=== PATIENT | female | born 1955 | race Caucasian/White ===

== ENCOUNTER → 2021-07-22 07:25 | Outpatient (CLI) | payer MEDICARE, SELFPAY ==
[2021-07-22 08:36] LABS: Add Manual Diff / Slide Review NO; Basophils Absolute Auto 0 /uL (0-100); Basophils Percent Auto 1.7 % (0-2); Eosinophils Absolute Auto 100 /uL (0-450); Eosinophils Percent Auto 5.6 % (2-4); Hematocrit 30.5 % (36-46); Hemoglobin 10.6 g/dL (12.0-16.0); Lymphocytes Absolute Auto 800 /uL (1100-4500); Lymphocytes Percent Auto 33.5 % (25-40); Mean Corpuscular HGB Conc 34.8 % (30-36); Mean Corpuscular Hemoglobin 31.3 PG (26-34); Mean Corpuscular Volume 89.9 fL (80-100); Monocytes Absolute Auto 300 /uL (0-900); Monocytes Percent Auto 11.6 % (3-14); Neutrophils Absolute Auto 1200 /uL (1500-7000); Neutrophils Percent Auto 47.6 % (50-75); Platelet Count 207 X10^3/uL (150-400); Red Blood Cell Count 3.39 X10^6/uL (4.0-5.2); Red Cell Distribution Width 12.1 % (11.6-14.8); White Blood Cell Count 2.5 X10^3/uL (4.5-11.0)
[2021-07-22 09:05] LABS: Erythrocyte Sedimentation Rate 17 MM/HR (0-20)
[2021-07-22 09:16] LABS: Alanine Aminotransferase 16 IU/L (<35); Albumin 3.8 g/dL (3.5-5.0); Albumin Globulin Ratio 1.7 (1.0-2.8); Alkaline Phosphatase 58 U/L (38-126); Aspartate Aminotransferase 27 IU/L (14-36); BUN Creatinine Ratio 19.7 (6-22); Bilirubin Total 0.2 mg/dL (0.2-1.3); Blood Urea Nitrogen 13 mg/dL (7-17); C-Reactive Protein Quant < 0.5 mg/dL (<1.0); Calcium 8.7 mg/dL (8.4-10.2); Carbon Dioxide 28 mmol/L (22-32); Chloride 101 mmol/L (98-107); Cholesterol 177 mg/dL (140-199); Estimated Glomerular Filt Rate > 60 mL/min (>60); Globulin 2.3 g/dL (1.7-4.1); Glucose 80 mg/dL (80-110); HDL Cholesterol 43 mg/dL (40-60); HEMOLYSIS < 15 (0-50); LDL Cholesterol Calculated 115 mg/dL (<100); Potassium 4.1 mmol/L (3.4-5.1); Sodium 135 mmol/L (137-145); Total Protein 6.1 g/dL (6.3-8.2); Triglycerides 94 mg/dL (35-150)
[2021-07-22 09:26] LABS: Vitamin D 25 Hydroxy (D3) 47.1 ng/mL (30.0-100.0)
[2021-07-22 10:02] LABS: Vitamin B12 Reflex MMA if <400 > 1000 pg/mL (239-931)
[2021-07-22 16:37] LABS: Hep C Virus Ab w/Reflex Quant NEGATIVE s/c (NEGATIVE)
[2021-07-24 15:44] LABS: ANA Screen, IFA Negative (.)
[2021-07-28 12:01] LABS: Antimyeloperoxidase AB <9.0 U/mL (0.0-9.0); Antiproteinase 3 AB <3.5 U/mL (0.0-3.5); Atypical P-ANCA Titer <1:20 titer (Neg:<1:20); C-ANCA Titer <1:20 titer (Neg:<1:20); P-ANCA Titer <1:20 titer (Neg:<1:20)
== END ==
PROVIDERS: PCP Family Medicine; Referring Provider Family Medicine; Visit Provider Family Medicine
DX: E55.9 Vitamin D deficiency, unspecified (principal); L40.9 Psoriasis, unspecified; Z11.59 Encounter for screening for other viral diseases; E53.8 Deficiency of other specified B group vitamins; F32.9 Major depressive disorder, single episode, unspecified; L30.9 Dermatitis, unspecified; L71.9 Rosacea, unspecified
CPT/HCPCS: 36415; 80053; 80061; 82306; 82607; 83520; 85025; 85651; 86038; 86140; 86256; 86803

== ENCOUNTER → 2021-07-27 12:28 | Outpatient (CLI) | payer MEDICARE, SELFPAY ==
--- NOTE | 2021-07-27 12:31 | DI.MG.S_ITS ---
BILATERAL DIGITAL SCREENING MAMMOGRAM 3D/2D WITH CAD: 07/27/2021 CLINICAL: Routine screening. Family history of breast cancer. Comparison is made to exams dated: 06/24/2020 mammogram, 06/27/2019 mammogram, and 06/06/2018 mammogram - outside location. The tissue of both breasts is extremely dense, which lowers the sensitivity of mammography. Current study was also evaluated with a Computer Aided Detection (CAD) system. No significant masses, calcifications, or other findings are seen in either breast. There has been no significant interval change. IMPRESSION: NEGATIVE There is no mammographic evidence of malignancy. A 1 year screening mammogram is recommended. This exam was interpreted at Station ID: [id number]. NOTE: For mammograms, a report in lay terms will be sent to the patient. Approximately 15% of breast malignancies will not be visualized mammographically. In the management of a palpable breast mass, a negative mammogram must not discourage biopsy of a clinically suspicious lesion. Electronically Signed By: Zac jaime/nella:07/27/2021 13:09:54 letter sent: Normal Exam ACR BI-RADS Category 1: Negative [id number]
== END ==
PROVIDERS: PCP Family Medicine; Referring Provider Family Medicine; Visit Provider Family Medicine
DX: Z12.31 Encounter for screening mammogram for malignant neoplasm of breast (principal); Z80.3 Family history of malignant neoplasm of breast; Z13.820 Encounter for screening for osteoporosis; M81.0 Age-related osteoporosis without current pathological fracture; Z78.0 Asymptomatic menopausal state; F32.9 Major depressive disorder, single episode, unspecified
CPT/HCPCS: 77063; 77067; 77080

== ENCOUNTER → 2022-06-30 11:17 | Outpatient (CLI) | payer MEDICARE, SELFPAY ==
[2022-06-30 12:48] LABS: Add Manual Diff / Slide Review NO; Basophils Absolute Auto 0 /uL (0-100); Eosinophils Absolute Auto 100 /uL (0-450); Eosinophils Percent Auto 3.4 % (2-4); Hematocrit 36.5 % (36-46); Hemoglobin 12.3 g/dL (12.0-16.0); Lymphocytes Absolute Auto 1200 /uL (1100-4500); Lymphocytes Percent Auto 28.1 % (25-40); Mean Corpuscular HGB Conc 33.7 % (30-36); Mean Corpuscular Hemoglobin 30.5 PG (26-34); Mean Corpuscular Volume 90.6 fL (80-100); Monocytes Absolute Auto 300 /uL (0-900); Monocytes Percent Auto 7.7 % (3-14); Neutrophils Absolute Auto 2500 /uL (1500-7000); Neutrophils Percent Auto 59.8 % (50-75); Platelet Count 200 X10^3/uL (150-400); Red Blood Cell Count 4.03 X10^6/uL (4.0-5.2); Red Cell Distribution Width 13.2 % (11.6-14.8); White Blood Cell Count 4.1 X10^3/uL (4.5-11.0)
[2022-06-30 13:13] LABS: Alanine Aminotransferase 21 IU/L (<35); Albumin 4.2 g/dL (3.5-5.0); Albumin Globulin Ratio 1.7 (1.0-2.8); Alkaline Phosphatase 69 U/L (38-126); Aspartate Aminotransferase 29 IU/L (14-36); Bilirubin Total 0.3 mg/dL (0.2-1.3); Blood Urea Nitrogen 13 mg/dL (7-17); Calcium 9.3 mg/dL (8.4-10.2); Carbon Dioxide 30 mmol/L (22-32); Chloride 101 mmol/L (98-107); Cholesterol 194 mg/dL (140-199); Estimated Glomerular Filt Rate > 60 mL/min (>60); Globulin 2.5 g/dL (1.7-4.1); Glucose 77 mg/dL (80-110); HDL Cholesterol 55 mg/dL (40-60); HEMOLYSIS < 15 (0-50); LDL Cholesterol Calculated 95 mg/dL (<100); Magnesium 2.1 mg/dL (1.6-2.3); Potassium 4.2 mmol/L (3.4-5.1); Sodium 136 mmol/L (137-145); Total Protein 6.7 g/dL (6.3-8.2); Triglycerides 218 mg/dL (35-150)
[2022-06-30 13:15] LABS: HEMOLYSIS < 15 (0-50); Iron 63 ug/dL (37-170)
[2022-06-30 13:27] LABS: Percent Iron Saturation 15 % (15-50); Total Iron Binding Capacity 415 ug/dL (265-497); Transferrin 301 mg/dL (206-381)
[2022-06-30 13:45] LABS: TSH w/ Reflex to FT4 2.01 uIU/mL (0.47-4.68)
[2022-06-30 13:50] LABS: Ferritin 9 ng/mL (11-264)
[2022-07-01 12:30] LABS: x Labcorp Estim. Avg Glu (eAG) 114 mg/dL (.); x Labcorp Hemoglobin A1c 5.6 % (4.8-5.6)
[2022-07-10 15:36] LABS: Interpretation Negative (.)
== END ==
PROVIDERS: PCP Family Medicine; Referring Provider Internal Medicine Cardiovascular Disease; Visit Provider Internal Medicine Cardiovascular Disease
DX: R73.9 Hyperglycemia, unspecified (principal); I49.1 Atrial premature depolarization; E78.5 Hyperlipidemia, unspecified; R00.2 Palpitations; R06.09 Other forms of dyspnea; D64.9 Anemia, unspecified; D72.819 Decreased white blood cell count, unspecified; L30.9 Dermatitis, unspecified; L71.9 Rosacea, unspecified
CPT/HCPCS: 36415; 80053; 80061; 81206; 81207; 82728; 83036; 83540; 83550; 83735; 84443; 85025

== ENCOUNTER → 2023-04-05 14:03 | Outpatient (CLI) | payer MEDICARE, SELFPAY ==
--- NOTE | 2023-04-05 14:04 | DI.MG.S_ITS ---
BILATERAL DIGITAL SCREENING MAMMOGRAM 3D/2D WITH CAD: 04/05/2023 CLINICAL: Routine screening. Family history of breast cancer. Comparison is made to exams dated: 07/27/2021 mammogram - [facility], 06/24/2020 mammogram, and 06/27/2019 mammogram - outside location. Both breasts are extremely dense, which lowers the sensitivity of mammography (category d />75% glandular tissue). Current study was also evaluated with a Computer Aided Detection (CAD) system. There are benign calcifications in both breasts. There also are benign post operative findings in the left breast. No significant masses, calcifications, or other findings are seen in either breast. There has been no significant interval change. IMPRESSION: BENIGN There is no mammographic evidence of malignancy. A 1 year screening mammogram is recommended. Based on the Tyrer Cuzick model (a risk assessment model) the patient's lifetime risk is 13.7% and her 10 year risk is 8.2%. According to the ACR, ACS, and NCCN guidelines, an annual breast MRI exam along with mammogram is recommended if the patient's lifetime risk is 20% or greater. This exam was interpreted at Station ID: [id number]. NOTE: For mammograms, a report in lay terms will be sent to the patient. Approximately 15% of breast malignancies will not be visualized mammographically. In the management of a palpable breast mass, a negative mammogram must not discourage biopsy of a clinically suspicious lesion. Electronically Signed By: Cristian lopez/nella:04/05/2023 16:48:20 letter sent: Normal Exam ACR BI-RADS Category 2: Benign Finding(s) 3342F
--- NOTE | 2023-04-05 14:04 | DI.RAD.S_ITS ---
Bone Density Report Name: TALON SEPULVEDA Age: 67 Sex: Female Ethnicity: White Date of : 1955 Indication: postmenopausal osteoporosis; Referring Provider: ALE TYLER Study: Bone densitometry was performed. Exam Date: April 05, 2023 Accession number: [id number] Bone Density: Region BMD T-score Z-score Classification AP Spine(L1-L4) 0.760 -2.6 -0.6 Osteoporosis Femoral Neck (Left) 0.731 -1.1 0.7 Osteopenia Total Hip (Left) 0.800 -1.2 0.3 Osteopenia Femoral Neck (Right) 0.640 -1.9 -0.1 Osteopenia Total Hip (Right) 0.746 -1.6 -0.1 Osteopenia Total Hip Mean 0.773 -1.4 0.1 Osteopenia World Health Organization criteria for BMD impression classify patients as: Normal (T-score at or above -1.0), Osteopenia (T-score between -1.0 and -2.5), or Osteoporosis (T-score at or below -2.5). Previous Exams: -- Region Exam Age BMD T-score BMD Change BMD Change Date g/cm2 vs Baseline vs Previous -- AP Spine (L1-L4) 04/05/2023 67 0.760 -2.6 -0.007 (-0.9%) -0.007 (-0.9%) 07/27/2021 65 0.766 -2.6 Total Hip(Left) 04/05/2023 67 0.800 -1.2 0.027 (3.5%) 0.027 (3.5%) 07/27/2021 65 0.773 -1.4 Total Hip(Right) 04/05/2023 67 0.746 -1.6 -0.001 (-0.2%) -0.001 (-0.2%) 07/27/2021 65 0.748 -1.6 -- *Denotes significance at 95% confidence level, LSC for AP Spine = 0.022 g/cm2, LSC for Total Hip = 0.027 g/cm2 Impression: The patient has osteoporosis, based on the Total Spine T-score. No significant bone loss was observed. Discussion: INCREASED RISK OF FRACTURE. BONE DENSITY IS UNDESIRABLY LOW AT ONE OR MORE SKELETAL SITES, CONSISTENT WITH POSTMENOPAUSAL OSTEOPOROSIS. This patient's lowest T-score meets the World Health Organization's (WHO) criteria for osteoporosis at one or more sites (T-score -2.5 or below). In untreated patients, the risk of osteoporotic fracture increases approximately two-fold for each 1.0 SD decrease in T-score. Low bone density is not the only risk factor for fracture; also consider factors such as patient's age, frailty or poor health, risk of falling, risk of injury, previous osteoporotic fracture, family history of osteoporosis, cigarette smoking, low body weight, etc. Not everyone with low bone mineral density has osteoporosis; osteomalacia and other metabolic bone disorders should also be considered. Patients who have osteoporosis should be evaluated for specific diseases and conditions (secondary causes) that may cause or contribute to bone loss. The [place] [employer] Endocrinologists (AACE) and National Osteoporosis Foundation (NOF) recommend pharmacologic intervention for all postmenopausal women whose T-score is in this range. The patient should follow a healthful lifestyle (good nutrition with adequate calcium and vitamin D, and appropriate weight-bearing exercise). Follow-Up: Consider a repeat BMD and Vertebral Fracture Assessment (VFA) exam in 2 years or sooner if medically necessary, to reassess this patient's status. Reported by: DEJAN CURRY MD on 04/05/2023 2:59:00 PM.
--- NOTE | 2023-04-05 14:46 | DI.DEXA.S_ITS ---
Bone Density Report Name: TALON SEPULVEDA Age: 67 Sex: Female Ethnicity: White Date of : 1955 Indication: postmenopausal osteoporosis; Referring Provider: ALE TYLER Study: Bone densitometry was performed. Exam Date: April 05, 2023 Accession number: [id number] Bone Density: Region BMD T-score Z-score Classification AP Spine(L1-L4) 0.760 -2.6 -0.6 Osteoporosis Femoral Neck (Left) 0.731 -1.1 0.7 Osteopenia Total Hip (Left) 0.800 -1.2 0.3 Osteopenia Femoral Neck (Right) 0.640 -1.9 -0.1 Osteopenia Total Hip (Right) 0.746 -1.6 -0.1 Osteopenia Total Hip Mean 0.773 -1.4 0.1 Osteopenia World Health Organization criteria for BMD impression classify patients as: Normal (T-score at or above -1.0), Osteopenia (T-score between -1.0 and -2.5), or Osteoporosis (T-score at or below -2.5). Previous Exams: -- Region Exam Age BMD T-score BMD Change BMD Change Date g/cm2 vs Baseline vs Previous -- AP Spine (L1-L4) 04/05/2023 67 0.760 -2.6 -0.007 (-0.9%) -0.007 (-0.9%) 07/27/2021 65 0.766 -2.6 Total Hip(Left) 04/05/2023 67 0.800 -1.2 0.027 (3.5%) 0.027 (3.5%) 07/27/2021 65 0.773 -1.4 Total Hip(Right) 04/05/2023 67 0.746 -1.6 -0.001 (-0.2%) -0.001 (-0.2%) 07/27/2021 65 0.748 -1.6 -- *Denotes significance at 95% confidence level, LSC for AP Spine = 0.022 g/cm2, LSC for Total Hip = 0.027 g/cm2 Impression: The patient has osteoporosis, based on the Total Spine T-score. No significant bone loss was observed. Discussion: INCREASED RISK OF FRACTURE. BONE DENSITY IS UNDESIRABLY LOW AT ONE OR MORE SKELETAL SITES, CONSISTENT WITH POSTMENOPAUSAL OSTEOPOROSIS. This patient's lowest T-score meets the World Health Organization's (WHO) criteria for osteoporosis at one or more sites (T-score -2.5 or below). In untreated patients, the risk of osteoporotic fracture increases approximately two-fold for each 1.0 SD decrease in T-score. Low bone density is not the only risk factor for fracture; also consider factors such as patient's age, frailty or poor health, risk of falling, risk of injury, previous osteoporotic fracture, family history of osteoporosis, cigarette smoking, low body weight, etc. Not everyone with low bone mineral density has osteoporosis; osteomalacia and other metabolic bone disorders should also be considered. Patients who have osteoporosis should be evaluated for specific diseases and conditions (secondary causes) that may cause or contribute to bone loss. The [place] [employer] Endocrinologists (AACE) and National Osteoporosis Foundation (NOF) recommend pharmacologic intervention for all postmenopausal women whose T-score is in this range. The patient should follow a healthful lifestyle (good nutrition with adequate calcium and vitamin D, and appropriate weight-bearing exercise). Follow-Up: Consider a repeat BMD and Vertebral Fracture Assessment (VFA) exam in 2 years or sooner if medically necessary, to reassess this patient's status. Reported by: NANO MAYERS M.D. on 04/05/2023 8:29:00 AM.
== END ==
PROVIDERS: PCP Family Medicine; Referring Provider Family Medicine; Visit Provider Family Medicine
DX: M81.0 Age-related osteoporosis without current pathological fracture (principal); Z12.31 Encounter for screening mammogram for malignant neoplasm of breast; Z80.3 Family history of malignant neoplasm of breast; R92.343 Mammographic extreme density, bilateral breasts
CPT/HCPCS: 77063; 77067; 77080

== ENCOUNTER → 2023-07-28 10:20 | Outpatient (CLI) | payer MEDICARE, SELFPAY ==
[2023-07-28 10:59] LABS: Add Manual Diff / Slide Review NO; Basophils Absolute Auto 100 /uL (0-100); Basophils Percent Auto 1.4 % (0-2); Eosinophils Absolute Auto 200 /uL (0-450); Lymphocytes Absolute Auto 1100 /uL (1100-4500); Lymphocytes Percent Auto 29.3 % (25-40); Mean Corpuscular HGB Conc 33.4 % (30-36); Mean Corpuscular Hemoglobin 31.4 PG (26-34); Mean Corpuscular Volume 94.2 fL (80-100); Monocytes Absolute Auto 300 /uL (0-900); Monocytes Percent Auto 8.5 % (3-14); Neutrophils Absolute Auto 2200 /uL (1500-7000); Neutrophils Percent Auto 55.8 % (50-75); Platelet Count 183 X10^3/uL (150-400); Red Blood Cell Count 4.14 X10^6/uL (4.0-5.2); Red Cell Distribution Width 12.7 % (11.6-14.8); White Blood Cell Count 3.9 X10^3/uL (4.5-11.0)
[2023-07-28 11:14] LABS: HEMOLYSIS < 15 (0-50); Iron 89 ug/dL (37-170)
[2023-07-28 11:17] LABS: Alanine Aminotransferase 25 IU/L (<35); Albumin 4.1 g/dL (3.5-5.0); Alkaline Phosphatase 77 U/L (38-126); Aspartate Aminotransferase 34 IU/L (14-36); BUN Creatinine Ratio 19.4 (6-22); Bilirubin Total 0.5 mg/dL (0.2-1.3); Blood Urea Nitrogen 12 mg/dL (7-17); Calcium 8.9 mg/dL (8.4-10.2); Carbon Dioxide 28 mmol/L (22-32); Chloride 105 mmol/L (98-107); Cholesterol 218 mg/dL (140-199); Estimated Glomerular Filt Rate > 60 mL/min (>60); Globulin 2.1 g/dL (1.7-4.1); Glucose 84 mg/dL (80-110); HDL Cholesterol 61 mg/dL (40-60); HEMOLYSIS < 15 (0-50); LDL Cholesterol Calculated 134 mg/dL (<100); Potassium 4.2 mmol/L (3.4-5.1); Sodium 137 mmol/L (137-145); Total Protein 6.2 g/dL (6.3-8.2); Triglycerides 113 mg/dL (35-150)
[2023-07-28 11:25] LABS: Percent Iron Saturation 26 % (15-50); Total Iron Binding Capacity 339 ug/dL (265-497); Transferrin 260 mg/dL (206-381)
[2023-07-28 11:31] LABS: Vitamin D 25 Hydroxy (D3) 52.4 ng/mL (30.0-100.0)
[2023-07-28 11:45] LABS: TSH w/ Reflex to FT4 1.14 uIU/mL (0.47-4.68)
[2023-07-28 11:50] LABS: Ferritin 17 ng/mL (11-264)
[2023-08-01 07:21] LABS: Apolipoprotein B 113 mg/dL (<90)
== END ==
LOC: LAB 10:21
PROVIDERS: PCP Family Medicine; Referring Provider Family Medicine; Visit Provider Family Medicine
DX: L71.9 Rosacea, unspecified (principal); L40.9 Psoriasis, unspecified; F32.9 Major depressive disorder, single episode, unspecified; E78.5 Hyperlipidemia, unspecified; L30.9 Dermatitis, unspecified; M85.80 Other specified disorders of bone density and structure, unspecified site; D72.819 Decreased white blood cell count, unspecified; E55.9 Vitamin D deficiency, unspecified
CPT/HCPCS: 36415; 80053; 80061; 82172; 82306; 82728; 83540; 83550; 84443; 85025

== ENCOUNTER → 2024-03-23 07:33 | Outpatient (CLI) | payer MEDICARE, SELFPAY ==
--- NOTE | 2024-03-23 07:37 | DI.MRI.S_ITS ---
PROCEDURE: MR AB PANCREATIC/MRCP PROTOCOL INDICATIONS: pancreatic cyst TECHNIQUE: Coronal HASTE through the abdomen, axial 2-D FLASH in- and [id number], and breath-hold T2 FSE with fat saturation through the biliary system and pancreas. Oblique coronal and axial thin-slice HASTE, radial thick-slab HASTE centered on the extrahepatic bile ducts. Axial T1 vibe pre and postcontrast. Postcontrast T1 coronal images. Restricted diffusion sequences. 20 cc ProHance IV contrast. COMPARISON: [facility], MR, MR ABDOMEN PANCREAS PROTOCOL, 02/27/2020, 9:27. [facility], MR, MR ABDOMEN PANCREAS PROTOCOL, 04/14/2022, 9:29. FINDINGS: Image quality: Diagnostic. Gallbladder: No gallstones or wall thickening. Biliary ducts: No biliary dilation. Pancreas: No ductal dilation. Small cyst in the head of the pancreas measuring 0.8 cm, (3/10), unchanged, and remotely 0.9 cm in 2020. No high risk stigmata. No enhancement or restricted diffusion. OTHER: Lung bases: Unremarkable. Liver: No solid mass. A few cysts. Spleen: Size is within normal limits. Adrenal Glands: No adrenal nodules. Kidneys and Ureters: No hydronephrosis. No solid mass. No complex renal cystic lesion which requires follow up. Small cyst at the superior pole the right kidney measuring 2.6 cm. Stomach and Bowel: Prominent stool in the colon. No dilated loops of small bowel. The stomach is not distended. Peritoneum: No ascites. Ventral Wall: No hernia. Abdominal Nodes: No retroperitoneal or mesenteric adenopathy by size criteria. Vessels: Aorta and inferior vena cava are normal in size. Bones: No aggressive osseous abnormality. IMPRESSION: 1. Small cyst in the head of the pancreas measuring 0.8 cm, unchanged. This could represent a small side branch IPMN. No high risk stigmata. Low suspicion. -Recommend follow-up MRI pancreas or CT in 2 years. 2. No biliary or pancreatic ductal dilatation. Dictated by: Cristian York M.D. on 03/24/2024 at 20:34 Approved by: Cristian York M.D. on 03/24/2024 at 20:44
--- NOTE | 2024-03-23 07:37 | DI.MRI.S_ITS ---
PROCEDURE: MR HEAD/BRAIN WO/W CON INDICATIONS: new episodes of double vision TECHNIQUE: Noncontrast axial T1 spin echo, axial T2 fast spin echo, sagittal and axial FLAIR, coronal T2 fast spin echo, axial gradient echo, axial diffusion and ADC through the brain. After the administration of contrast, axial and coronal and sagittal T1 spin echo with fat saturation through the brain. COMPARISON: None. FINDINGS: Image quality: Diagnostic, with note made of motion artifact. CSF spaces: Basal cisterns are patent. No extra-axial fluid collections. Ventricles are normal in size and shape. Brain: No midline shift. No intracranial bleeds or masses. No abnormal intracranial enhancement. There is cerebral volume loss for age. There is periventricular white matter chronic small vessel ischemic change. The brainstem appears normal. Diffusion-weighted images demonstrate no acute infarct. No chronic ischemic insults. Normal intravascular flow voids are present. Skull and face: Calvarial marrow is normal in signal. Orbits appear normal. Sinuses: Sinuses and mastoids appear clear. IMPRESSION: No imaging explanation is found for this patient's presenting symptoms. No focal orbital abnormality or orbital mass can be seen. No abnormal enhancement can be seen. No findings of acute or subacute infarction can be seen. No prior territorial infarct can be seen. No masses or abnormal enhancement can be seen elsewhere. Dictated by: Garrett Deras M.D. on 03/25/2024 at 11:13 Approved by: Garrett Deras M.D. on 03/25/2024 at 11:14
[2024-03-23 09:55] LABS: Cholesterol 182 mg/dL (140-199); HDL Cholesterol 53 mg/dL (40-60); LDL Cholesterol Calculated 112 mg/dL (<100); Triglycerides 86 mg/dL (35-150)
[2024-03-24 08:38] LABS: Apolipoprotein B 92 mg/dL (<90)
== END ==
PROVIDERS: PCP Family Medicine; Referring Provider Family Medicine; Visit Provider Family Medicine
DX: K86.2 Cyst of pancreas (principal); H53.2 Diplopia; E78.5 Hyperlipidemia, unspecified; Z00.00 Encounter for general adult medical examination without abnormal findings; L40.9 Psoriasis, unspecified; L30.9 Dermatitis, unspecified; F32.9 Major depressive disorder, single episode, unspecified; M85.80 Other specified disorders of bone density and structure, unspecified site; D72.819 Decreased white blood cell count, unspecified
CPT/HCPCS: 36415; 70553; 74183; 80061; 82172; A9579

== ENCOUNTER → 2024-04-09 09:01 | Outpatient (CLI) | payer MEDICARE, SELFPAY ==
--- NOTE | 2024-04-09 09:02 | DI.MG.S_ITS ---
BILATERAL DIGITAL SCREENING MAMMOGRAM 3D/2D WITH CAD: 04/09/2024 CLINICAL: Routine screening. Family history of breast cancer. Comparison is made to exams dated: 04/05/2023 mammogram, 07/27/2021 mammogram - [facility], 06/24/2020 mammogram, and 06/27/2019 mammogram - outside location. The breasts are extremely dense, which lowers the sensitivity of mammography (category d />75% glandular tissue). Current study was also evaluated with a Computer Aided Detection (CAD) system. There are benign calcifications in both breasts. There also are benign post operative findings in the left breast. No significant masses, calcifications, or other findings are seen in either breast. There has been no significant interval change. IMPRESSION: BENIGN There is no mammographic evidence of malignancy. A 1 year screening mammogram is recommended. Based on the Tyrer Cuzick model (a risk assessment model) the patient's lifetime risk is 13.0% and her 10 year risk is 8.3%. According to the ACR, ACS, and NCCN guidelines, an annual breast MRI exam along with mammogram is recommended if the patient's lifetime risk is 20% or greater. This exam was interpreted at Station ID: [id number]. NOTE: For mammograms, a report in lay terms will be sent to the patient. Approximately 15% of breast malignancies will not be visualized mammographically. In the management of a palpable breast mass, a negative mammogram must not discourage biopsy of a clinically suspicious lesion. Electronically Signed By: Cristian lopez/nella:04/09/2024 14:56:49 letter sent: Normal Exam ACR BI-RADS Category 2: Benign
== END ==
PROVIDERS: PCP Family Medicine; Referring Provider Family Medicine; Visit Provider Family Medicine
DX: Z12.31 Encounter for screening mammogram for malignant neoplasm of breast (principal); Z80.3 Family history of malignant neoplasm of breast; R92.343 Mammographic extreme density, bilateral breasts
CPT/HCPCS: 77063; 77067

== ENCOUNTER → 2024-05-28 15:08 | Outpatient (CLI) | payer MEDICARE, SELFPAY ==
--- NOTE | 2024-05-28 15:09 | DI.MRI.S_ITS ---
MR breast BI wo/w con: 05/28/2024. BI-RADS: 1 CLINICAL: 68-year old female for bilateral diagnostic breast MRI. No personal or first-degree family history of breast cancer. The patient had a prior left breast biopsy. PRIOR EXAMS: 04/09/2024, 04/05/2023, 07/27/2021. MRI TECHNIQUE: Bilateral breast MRI was performed on a 1.5 Melissa magnet using a dedicated breast coil with mild compression. Axial T1 and T2 STIR sequences were obtained. Dynamic contrast enhanced VIBRANT fat-suppressed sequences were obtained. Delayed sagittal high resolution or sagittal reconstructed isotropic sequence was also obtained. Subtraction images and maximum intensity projection images were obtained. The study was evaluated using [employer] software. IV Contrast: 20 ml ProHance. FIBROGLANDULAR TISSUE Bilateral: D. Extreme fibroglandular tissue. BACKGROUND PARENCHYMAL ENHANCEMENT Bilateral: Minimal symmetrical background parenchymal enhancement. BREAST FINDINGS Bilateral: No suspicious mass, suspicious non-mass enhancement, or other concerning finding identified. IMPRESSION: * No evidence of malignancy. RECOMMENDATIONS * Consider breast MRI screening in one year. Bilateral * Annual screening mammography in ten months. * Screening mammography already scheduled. OVERALL ASSESSMENT CATEGORY BI-RADS-1: Negative. ELECTRONICALLY SIGNED: Cathy Carmichael M.D. on 05/28/2024 at 06:01:06 PM PT Interpreting Station ID: [id number]
== END ==
PROVIDERS: PCP Family Medicine; Referring Provider Family Medicine; Visit Provider Family Medicine
DX: R92.30 Dense breasts, unspecified (principal); Z80.3 Family history of malignant neoplasm of breast; Z85.9 Personal history of malignant neoplasm, unspecified
CPT/HCPCS: 77049; A9579